=== PATIENT | male | born 1940 | race African-American/Black ===

== ENCOUNTER 2018-08-28 19:51 | Inpatient (IN) | payer OTHER, MEDICAID ==
[~2018-08-28] VITALS: Ht 167.6 cm; Wt 61.4 kg
[2018-08-28 19:43] VITALS: BP 155/89
[~2018-08-28 19:51] MED LIST: ADVAIR 100-501 EACH INH; ALBUTEROL SULF8.5 GM INH; ALBUTEROL2.5 MG/3 M HHN; ALBUTEROL2.5 MG/3 M INH; PREDNISONE20 MG ORAL
[2018-08-28] MEDS ORDERED: Morphine Sulfate 4mg/ml Inj (IV/IM USE ONLY) IVP ONE (20:30)
[2018-08-28 21:07] LABS: BASOPHILS % (AUTO) 0.3 % (0.0-2.0); EOSINOPHILS % (AUTO) 0.1 % (0.0-3.0); HEMATOCRIT 44.8 % (42.0-52.0); HEMOGLOBIN 14.6 G/DL (14.2-18.0); LYMPHOCYTES % (AUTO) 5.9 % (20.0-45.0); MEAN CORPUSCULAR VOLUME 91 FL (80-99); MONOCYTES % (AUTO) 6.1 % (1.0-10.0); NEUTROPHILS % (AUTO) 87.5 % (45.0-75.0); PLATELET COUNT 250 K/UL (150-450); RED BLOOD COUNT 4.94 M/UL (4.70-6.10); RED CELL DISTRIBUTION WIDTH 15.4 % (11.6-14.8); WHITE BLOOD COUNT 16.4 K/UL (4.8-10.8)
[2018-08-28 21:11] LABS: ANION GAP 17 mmol/L (5-15); BLOOD UREA NITROGEN 22 mg/dL (7-18); CALCIUM 9.1 MG/DL (8.5-10.1); CARBON DIOXIDE 19 MMOL/L (21-32); CHLORIDE 93 MMOL/L (98-107); CREATININE 1.9 MG/DL (0.55-1.30); POTASSIUM 4.2 MMOL/L (3.5-5.1); SODIUM 129 MMOL/L (136-145)
[2018-08-28 21:12] LABS: INR 0.9 (0.9-1.1)
[2018-08-28 21:23] LABS: ALANINE AMINOTRANSFERASE 36 U/L (12-78); ALBUMIN 4.1 G/DL (3.4-5.0); ALKALINE PHOSPHATASE 99 U/L (46-116); ASPARTATE AMINO TRANSFERASE 26 U/L (15-37); BILIRUBIN,TOTAL 0.4 MG/DL (0.2-1.0)
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
[2018-08-28 22:25] VITALS: BP 154/96
[2018-08-28] MEDS ORDERED: Nitroglycerin Subl 0.4mg tab SL PRN (22:45)
[2018-08-28] MEDS ORDERED: Morphine Sulfate 2mg/ml Inj IVP PRN (22:45)
[2018-08-28] MEDS ORDERED: Albuterol/Ipratropium 3ml neb HHN PRN (22:45)
[2018-08-28 23:00] VITALS: BP 181/100
[2018-08-29] VITALS (7 sets, daily range): BP systolic 137–189; BP diastolic 74–102
[2018-08-29] MEDS: Metoprolol Succinate XL 25mg tab ORAL SCH ×2 (01:05→08:21)
[2018-08-29] MEDS: Morphine Sulfate 2mg/ml Inj IVP PRN ×2 (02:37→08:23)
[2018-08-29] MEDS ORDERED: Hydromorphone 0.5mg/0.5ml inj IVP ONE (05:15)
[2018-08-29 07:30] LABS: EOSINOPHILS % (AUTO) 0.1 % (0.0-3.0); HEMATOCRIT 38.8 % (42.0-52.0); LYMPHOCYTES % (AUTO) 6.7 % (20.0-45.0); MEAN CORPUSCULAR VOLUME 90 FL (80-99); MONOCYTES % (AUTO) 10.2 % (1.0-10.0); PLATELET COUNT 215 K/UL (150-450); RED BLOOD COUNT 4.32 M/UL (4.70-6.10); RED CELL DISTRIBUTION WIDTH 14.9 % (11.6-14.8); WHITE BLOOD COUNT 10.6 K/UL (4.8-10.8)
[2018-08-29 07:34] LABS: ANION GAP 10 mmol/L (5-15); BLOOD UREA NITROGEN 25 mg/dL (7-18); CALCIUM 8.6 MG/DL (8.5-10.1); CARBON DIOXIDE 23 MMOL/L (21-32); CHLORIDE 97 MMOL/L (98-107); CREATININE 1.7 MG/DL (0.55-1.30); POTASSIUM 5.4 MMOL/L (3.5-5.1); SODIUM 130 MMOL/L (136-145)
[2018-08-29] MEDS ORDERED: Advair 100/50 Inhaler - 14 dose INH SCH (09:00)
[2018-08-29] MEDS ORDERED: Enoxaparin 30mg Inj SUBQ SCH (09:00)
--- NOTE | 2018-08-29 10:59 | Diagnostic Imaging Report ---
Indication: Chest pain Technique: One view of the chest Comparison: 05/25/2005 Findings: There is some atelectasis at the left lung base. Lungs and pleural spaces are otherwise clear. The heart size is normal. The aorta is evaluated tortuous and calcified Impression: Left basilar atelectasis. No acute process otherwise
[2018-08-29] MEDS ORDERED: Metoprolol Tartrate 50mg tab ORAL SCH (11:00)
[2018-08-29] MEDS ORDERED: HYDROmorphone 1mg/ml Carpuject IVP PRN (11:00)
--- NOTE | 2018-08-29 11:14 | Diagnostic Imaging Report ---
Indication: Pain, trauma Technique: Noncontrast spiral acquisitions obtained through the pelvis. Multiplanar reconstructions generated. Total dose length product 347.29 mGycm. CTDIvol(s) 11.2 mGy. Dose reduction achieved using automated exposure control Comparison: none Findings: There is a fracture of the right femoral neck. This is superiorly displaced by about one half bone width, posteriorly angulated. No other acute fractures demonstrated. There are degenerative changes of both hips, mild. Heterotopic ossification is seen along the lateral aspect of the sacrum, extending cephalad along the posterior lateral aspect of the iliac bone. There is bilateral L5 spondylolysis, with grade 1-2 L5 on S1 spondylolisthesis and severe endstage secondary degenerative changes. There is degenerative spondylosis elsewhere in the lower lumbar spine as well. There is some soft tissue contusion in the right posterior hip region subcutaneous fat. There may also be some contusion on the left, less severe. The pelvic viscera are unremarkable. Impression: Positive for right femoral neck fracture Evidence of associated soft tissue contusion Bilateral L5 spondylolysis, grade 1-2 L5 on S1 spondylolisthesis. Degenerative spondylosis Unusual heterotopic ossification along the left lateral aspect of the sacrum, may indicate prior remote insult The CT scanner at [facility] is accredited by the [employer] and the scans are performed using protocols designed to limit radiation exposure to as low as reasonably achievable to attain images of sufficient resolution adequate for diagnostic evaluation.
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
--- NOTE | 2018-08-29 14:09 | Cardiology Report ---
APPROVED REPORT EKG Measurement Heart [id number] [id number] Normal sinus rhythm Possible Left atrial enlargement Borderline ECG
[2018-08-29] MEDS ORDERED: Nitroglycerin Subl 0.4mg tab SL PRN (15:15)
[2018-08-29] MEDS: HYDROmorphone 1mg/ml Carpuject IVP PRN ×2 (17:53→21:52)
[2018-08-29] MEDS: Advair 100/50 Inhaler - 14 dose INH SCH (19:44)
[2018-08-29] MEDS: Albuterol/Ipratropium 3ml neb HHN PRN (20:00)
[2018-08-29] MEDS: Metoprolol Tartrate 50mg tab ORAL SCH (20:39)
[2018-08-30] VITALS (7 sets, daily range): BP systolic 122–170; BP diastolic 78–104
[2018-08-30] MEDS: Albuterol/Ipratropium 3ml neb HHN PRN ×5 (00:38→23:20)
[2018-08-30] MEDS: HYDROmorphone 1mg/ml Carpuject IVP PRN ×4 (01:20→20:49)
[2018-08-30] MEDS: Advair 100/50 Inhaler - 14 dose INH SCH ×2 (06:31→18:00)
[2018-08-30 07:31] LABS: BASOPHILS % (AUTO) 0.5 % (0.0-2.0); EOSINOPHILS % (AUTO) 0.5 % (0.0-3.0); HEMATOCRIT 40.1 % (42.0-52.0); HEMOGLOBIN 13.1 G/DL (14.2-18.0); LYMPHOCYTES % (AUTO) 7.9 % (20.0-45.0); MEAN CORPUSCULAR VOLUME 93 FL (80-99); MONOCYTES % (AUTO) 9.7 % (1.0-10.0); NEUTROPHILS % (AUTO) 81.4 % (45.0-75.0); PLATELET COUNT 204 K/UL (150-450); RED BLOOD COUNT 4.31 M/UL (4.70-6.10); RED CELL DISTRIBUTION WIDTH 16.3 % (11.6-14.8); WHITE BLOOD COUNT 11.6 K/UL (4.8-10.8)
[2018-08-30 07:55] LABS: ANION GAP 10 mmol/L (5-15); BLOOD UREA NITROGEN 30 mg/dL (7-18); CALCIUM 9.2 MG/DL (8.5-10.1); CARBON DIOXIDE 25 MMOL/L (21-32); CHLORIDE 100 MMOL/L (98-107); CREATININE 1.8 MG/DL (0.55-1.30); POTASSIUM 4.8 MMOL/L (3.5-5.1); SODIUM 134 MMOL/L (136-145)
[2018-08-30] MEDS: Metoprolol Tartrate 50mg tab ORAL SCH ×2 (08:31→20:49)
[2018-08-30] MEDS: Enoxaparin 30mg Inj SUBQ SCH (08:35)
--- NOTE | 2018-08-30 09:36 | Nephrology Progress Note ---
Assessment/Plan Assessment/Plan A/P 1) Right femoral neck fracture. Pending surgery on 08/31/2018 - arrange SNF afterwards 2) HTN- stable 3) DVT prophylaxsis with lovenox Subjective Date patient seen: Aug 30, 2018 Time patient seen: 09:34 ROS Limited/Unobtainable: No Allergies: Coded Allergies: No Known Allergies (Unverified , 09/14/14) Subjective Patient feeling well. In no distress awaiting surgery Objective Last 24 Hour Vital Signs Date Time Temp Pulse Resp B/P (MAP) Pulse Ox O2 Delivery O2 Flow Rate FiO2 08/30/18 08:51 76 16 100 Nasal Cannula 2.0 28 08/30/18 08:43 79 18 97 Nasal Cannula 2.0 28 08/30/18 08:31 89 141/104 08/30/18 08:31 89 141/104 08/30/18 08:11 Nasal Cannula 2.0 08/30/18 08:00 98.6 89 19 141/104 (116) 98 08/30/18 06:30 Nasal Cannula 2.0 28 08/30/18 06:30 95 Nasal Cannula 2.0 28 08/30/18 06:30 Nasal Cannula 2.0 28 08/30/18 06:30 Nasal Cannula 2.0 28 08/30/18 05:40 97.6 08/30/18 04:00 97.6 64 22 126/79 (95) 93 08/30/18 00:46 70 18 100 Nasal Cannula 2.0 28 08/30/18 00:38 67 18 95 Nasal Cannula 2.0 28 08/30/18 00:17 97.7 72 22 140/91 (107) 95 08/29/18 21:00 Nasal Cannula 2.0 08/29/18 20:39 76 135/87 08/29/18 20:11 74 18 99 Nasal Cannula 2.0 28 08/29/18 20:03 73 18 97 Nasal Cannula 2.0 28 08/29/18 20:00 97.8 69 22 137/89 (105) 97 08/29/18 19:47 Nasal Cannula 2.0 28 08/29/18 19:47 96 Nasal Cannula 2.0 28 08/29/18 19:46 Nasal Cannula 2.0 28 08/29/18 19:46 Nasal Cannula 2.0 28 08/29/18 16:06 155/102 08/29/18 15:50 99.0 76 18 155/102 (119) 96 08/29/18 12:38 77 149/74 08/29/18 12:00 97.8 77 18 149/74 (99) 96 08/29/18 11:51 80 08/29/18 10:05 Nasal Cannula 2.0 28 08/29/18 10:03 80 18 94 Nasal Cannula 2.0 28 08/29/18 10:01 80 18 94 Nasal Cannula 2.0 28 Intake and Output 08/29/18 08/30/18 19:00 07:00 Intake Total 120 ml 120 ml Output Total 600 ml 300 ml Balance -480 ml -180 ml Intake Oral 120 ml 120 ml Output Urine Total 600 ml 300 ml # Voids 1 2 Laboratory Tests 08/29/18 10:35: Potassium Level 4.6 08/30/18 06:58: Potassium Level 4.8, White Blood Count 11.6H, Red Blood Count 4.31L, Hemoglobin 13.1L, Hematocrit 40.1L, Mean Corpuscular Volume 93, Mean Corpuscular Hemoglobin 30.4, Mean Corpuscular Hemoglobin Concent 32.6, Red Cell Distribution Width 16.3H, Platelet Count 204, Mean Platelet Volume 5.5L, Neutrophils (%) (Auto) 81.4H, Lymphocytes (%) (Auto) 7.9L, Monocytes (%) (Auto) 9.7, Eosinophils (%) (Auto) 0.5, Basophils (%) (Auto) 0.5, Sodium Level 134L, Chloride Level 100, Carbon Dioxide Level 25, Anion Gap 10, Blood Urea Nitrogen 30H, Creatinine 1.8H, Estimat Glomerular Filtration Rate , Glucose Level 115H, Calcium Level 9.2 Height (Feet): 5 Height (Inches): 8.00 Weight (Pounds): 147 General Appearance: no apparent distress, alert EENT: normal ENT inspection Neck: normal alignment, supple Cardiovascular: normal rate, regular rhythm Respiratory/Chest: lungs clear, normal breath sounds Abdomen: non tender, soft Edema: no edema noted Arm (L), no edema noted Arm (R), no edema noted Leg (L), no edema noted Leg (R), no edema noted Pedal (L), no edema noted Pedal (R), no edema noted Generalized De MelanieKelton schroeder MD Aug 30, 2018 09:36
--- NOTE | 2018-08-30 21:00 | Progress Note ---
DATE: 08/29/2018 SUBJECTIVE: Atrial fibrillation. The patient is still in the telemetry. Medically his blood pressure is somewhat elevated. Otherwise, no issues overnight. PHYSICAL EXAMINATION: GENERAL: The patient is alert and oriented. He is resting comfortably on exam bed. EXTREMITIES: He has pain with extension of his right leg. Posterior calf is soft. ASSESSMENT: Right displaced femoral neck fracture. DISCUSSION: At this point, we were waiting to optimize his medical issues in anticipation of proceeding with surgery. Risks, limitations, expectations, and complications of procedure were discussed in detail. Again, we will try to optimize. Hopefully, he is medically cleared for either Wednesday or Wednesday for surgery. Cr Maharaj M.D. DR: NANNETTE JOB#: [id number] CC:
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
--- NOTE | 2018-08-30 21:45 | Progress Note ---
DATE: 08/30/2018 SUBJECTIVE: The patient is now transferred from the telemetry to the regular floor. He is medically optimized in anticipation of surgery during the plan to do a total hip arthroplasty. We are going to schedule it tomorrow when the OR staff is available. He is resting comfortably on the exam bed. No other issues. PHYSICAL EXAMINATION: GENERAL: The patient is alert and oriented. He is resting comfortably on bed. EXTREMITIES: Right leg is shortened and internally rotated. Posterior calf is soft. ASSESSMENT: Right displaced femoral neck fracture with underlying arthritis. DISCUSSION: At this point, I am going to proceed with right total hip arthroplasty. Risks, limitations, expectations, and complications of procedure were discussed in detail. All questions were addressed. The patient will be made NPO after midnight in anticipation of surgery tomorrow. Cr Maharaj M.D. DR: MO JOB#: [id number] CC:
[2018-08-31] VITALS (11 sets, daily range): BP systolic 113–142; BP diastolic 64–95
[2018-08-31] MEDS: HYDROmorphone 1mg/ml Carpuject IVP PRN (05:18)
[2018-08-31 07:25] LABS: BASOPHILS % (AUTO) 0.5 % (0.0-2.0); EOSINOPHILS % (AUTO) 0.6 % (0.0-3.0); HEMATOCRIT 38.9 % (42.0-52.0); HEMOGLOBIN 12.9 G/DL (14.2-18.0); LYMPHOCYTES % (AUTO) 9.5 % (20.0-45.0); MEAN CORPUSCULAR VOLUME 93 FL (80-99); MONOCYTES % (AUTO) 10.6 % (1.0-10.0); NEUTROPHILS % (AUTO) 78.8 % (45.0-75.0); PLATELET COUNT 182 K/UL (150-450); WHITE BLOOD COUNT 9.2 K/UL (4.8-10.8)
[2018-08-31 07:47] LABS: ANION GAP 11 mmol/L (5-15); BLOOD UREA NITROGEN 32 mg/dL (7-18); CALCIUM 9.3 MG/DL (8.5-10.1); CARBON DIOXIDE 23 MMOL/L (21-32); CHLORIDE 102 MMOL/L (98-107); CREATININE 1.5 MG/DL (0.55-1.30); POTASSIUM 4.4 MMOL/L (3.5-5.1); SODIUM 136 MMOL/L (136-145)
[2018-08-31] MEDS: Metoprolol Tartrate 50mg tab ORAL SCH ×2 (08:50→20:39)
[2018-08-31] MEDS: Albuterol/Ipratropium 3ml neb HHN PRN ×2 (08:51→22:44)
[2018-08-31] MEDS: Enoxaparin 30mg Inj SUBQ SCH (08:58)
[2018-08-31] MEDS: Advair 100/50 Inhaler - 14 dose INH SCH (09:00)
--- NOTE | 2018-08-31 09:33 | Nephrology Progress Note ---
Assessment/Plan Assessment/Plan A/P 1) Right femoral neck fracture. Surgery planned for today - arrange SNF afterwards 2) HTN- stable 3) DVT prophylaxsis with lovenox 4) Hypokalemia- replaced today Subjective Date patient seen: Aug 31, 2018 Time patient seen: 09:31 ROS Limited/Unobtainable: No Allergies: Coded Allergies: No Known Allergies (Unverified , 09/14/14) Subjective Patient feeling well. Surgery planned for today Objective Last 24 Hour Vital Signs Date Time Temp Pulse Resp B/P (MAP) Pulse Ox O2 Delivery O2 Flow Rate FiO2 08/31/18 09:12 Nasal Cannula 08/31/18 09:10 Nasal Cannula 2.0 28 08/31/18 09:08 78 20 100 Nasal Cannula 2.0 28 08/31/18 08:51 77 20 99 Nasal Cannula 2.0 28 08/31/18 08:50 89 141/89 08/31/18 08:50 89 141/89 08/31/18 07:48 96 Nasal Cannula 2.0 28 08/31/18 07:48 Nasal Cannula 2.0 28 08/31/18 05:48 98.2 08/31/18 04:00 98.2 73 21 142/85 (104) 99 08/31/18 00:00 97.9 80 22 140/95 (110) 99 08/30/18 23:27 83 20 99 Nasal Cannula 2.0 28 08/30/18 23:17 73 20 97 Nasal Cannula 2.0 28 08/30/18 21:00 Nasal Cannula 2.0 08/30/18 20:49 80 142/83 08/30/18 20:32 Nasal Cannula 2.0 28 08/30/18 20:32 97 Nasal Cannula 2.0 28 08/30/18 20:32 Nasal Cannula 2.0 28 08/30/18 20:31 Nasal Cannula 2.0 28 08/30/18 20:00 97.5 80 22 142/83 (102) 97 08/30/18 17:10 76 20 100 Nasal Cannula 2.0 28 08/30/18 17:00 73 16 97 Nasal Cannula 2.0 28 08/30/18 16:00 98.2 83 19 141/85 (103) 99 08/30/18 13:22 98.1 89 18 122/78 (93) 100 08/30/18 12:53 82 18 100 Nasal Cannula 2.0 28 08/30/18 12:48 88 16 95 Nasal Cannula 2.0 28 08/30/18 12:16 170/88 08/30/18 11:58 98.4 75 18 170/88 (115) 98 Intake and Output 08/30/18 08/31/18 19:00 07:00 Intake Total 1250 ml Output Total 750 ml 900 ml Balance 500 ml -900 ml Intake Oral 1250 ml Output Urine Total 750 ml 900 ml Laboratory Tests 08/31/18 06:58: White Blood Count 9.2, Red Blood Count 4.20L, Hemoglobin 12.9L, Hematocrit 38.9L , Mean Corpuscular Volume 93, Mean Corpuscular Hemoglobin 30.8, Mean Corpuscular Hemoglobin Concent 33.3, Red Cell Distribution Width 16.0H, Platelet Count 182, Mean Platelet Volume 5.4L, Neutrophils (%) (Auto) 78.8H, Lymphocytes (%) (Auto) 9.5L, Monocytes (%) (Auto) 10.6H, Eosinophils (%) (Auto) 0.6, Basophils (%) (Auto) 0.5, Sodium Level 136, Potassium Level 4.4, Chloride Level 102, Carbon Dioxide Level 23, Anion Gap 11, Blood Urea Nitrogen 32H, Creatinine 1.5H, Estimat Glomerular Filtration Rate , Glucose Level 137H, Calcium Level 9.3 Height (Feet): 5 Height (Inches): 6.00 Weight (Pounds): 135 General Appearance: no apparent distress, alert EENT: normal ENT inspection Neck: normal alignment, supple Cardiovascular: normal rate, regular rhythm Respiratory/Chest: lungs clear, normal breath sounds Abdomen: non tender, soft Edema: no edema noted Arm (L), no edema noted Arm (R), no edema noted Leg (L), no edema noted Leg (R), no edema noted Pedal (L), no edema noted Pedal (R), no edema noted Generalized Kelton Sepulveda MD Aug 31, 2018 09:33
[2018-08-31] MEDS ORDERED: Albuterol 90mcg Inhaler 8gm INH PRN (10:30)
[2018-08-31] MEDS ORDERED: LR 1000ml 1,000 ML IVLG SCH (16:39)
--- NOTE | 2018-08-31 16:39 | Anethesia Preoperative Eval ---
Anesthesia Pre-op PMH/ROS General Date of Evaluation: Aug 31, 2018 Time of Evaluation: 17:09 Anesthesiologist: Liz ASA Score: ASA 3 Mallampati Score Class I : Soft palate, uvula, fauces, pillars visible Class II: Soft palate, uvula, fauces visible Class III: Soft palate, base of uvula visible Class IV: Only hard plate visible Mallampati Classification: Class III Surgeon: Nicko Anesthesia History: none Family History: no anesthesia problems Allergies: Coded Allergies: No Known Allergies (Unverified , 09/14/14) Medications: see eMAR Patient NPO?: Yes NPO Date: Aug 31, 2018 NPO Time: 0000 Past Medical History Cardiovascular: Reports: HTN, other - HL Pulmonary: Reports: asthma, COPD Hematology/Immune: Reports: anemia Anesthesia Pre-op Phys. Exam Physician Exam Last Vital Signs Date Time Temp Pulse Resp B/P (MAP) Pulse Ox O2 Delivery O2 Flow Rate FiO2 08/31/18 12:00 97.9 87 20 136/86 (103) 99 08/31/18 09:12 Nasal Cannula 08/31/18 09:10 2.0 28 Constitutional: NAD Neurologic: CN 2-12 intact Cardiovascular: RRR Respiratory: CTA Gastrointestinal: S/NT/ND Airway Exam Mallampati Score: Class III MO: limited ROM: limited Teeth: missing, intact Anesthesia Pre-op A/P Labs Hematology Test 08/31/18 06:58 White Blood Count 9.2 K/UL (4.8-10.8) Red Blood Count 4.20 M/UL (4.70-6.10) L Hemoglobin 12.9 G/DL (14.2-18.0) L Hematocrit 38.9 % (42.0-52.0) L Mean Corpuscular Volume 93 FL (80-99) Mean Corpuscular Hemoglobin 30.8 PG (27.0-31.0) Mean Corpuscular Hemoglobin Concent 33.3 G/DL (32.0-36.0) Red Cell Distribution Width 16.0 % (11.6-14.8) H Platelet Count 182 K/UL (150-450) Mean Platelet Volume 5.4 FL (6.5-10.1) L Neutrophils (%) (Auto) 78.8 % (45.0-75.0) H Lymphocytes (%) (Auto) 9.5 % (20.0-45.0) L Monocytes (%) (Auto) 10.6 % (1.0-10.0) H Eosinophils (%) (Auto) 0.6 % (0.0-3.0) Basophils (%) (Auto) 0.5 % (0.0-2.0) Chemistry Test 08/31/18 06:58 Sodium Level 136 MMOL/L (136-145) Potassium Level 4.4 MMOL/L (3.5-5.1) Chloride Level 102 MMOL/L (98-107) Carbon Dioxide Level 23 MMOL/L (21-32) Anion Gap 11 mmol/L (5-15) Blood Urea Nitrogen 32 mg/dL (7-18) H Creatinine 1.5 MG/DL (0.55-1.30) H Estimat Glomerular Filtration Rate mL/min (>60) Glucose Level 137 MG/DL (74-106) H Calcium Level 9.3 MG/DL (8.5-10.1) Risk Assessment & Plan Assessment: ASA 3 Status Change Before Surgery: No Pre-Antibiotics Dru Gram Ancef IV Given Within 1 Hr of Incision: Yes Time Given: 17:28 Med Hill MD Aug 31, 2018 16:39
--- NOTE | 2018-08-31 16:43 | Immediate Post-Op Evaluation ---
Immediate Post-Op Evalulation Immediate Post-Op Evalulation Procedure: R Total Hip Arthroplasty Date of Evaluation: Aug 31, 2018 Time of Evaluation: 19:18 IV Fluids: 700 LR Blood Products: 0 Estimated Blood Loss: 75 Urinary Output: 50 Blood Pressure Systolic: 114 Blood Pressure Diastolic: 69 Pulse Rate: 69 Respiratory Rate: 16 O2 Sat by Pulse Oximetry: 100 Temperature (Fahrenheit): 97.3 Pain Score (1-10): 0 Nausea: No Vomiting: No Complications 0 Patient Status: awake, reacts, patent, none Hydration Status: adequate Dru Gram Ancef IV Given Within 1 Hr of Incision: Yes Time Given: 17:28 Med Hill MD Aug 31, 2018 16:43
[2018-08-31] MEDS ORDERED: Midazolam 2mg/2ml Inj IVP PRN (16:45)
[2018-08-31] MEDS ORDERED: LORazepam Inj 2mg/ml 1ml IV PRN (16:45)
[2018-08-31] MEDS ORDERED: Meperidine 50mg/ml Inj(FOR RIGORS ONLY) IVP PRN (16:45)
[2018-08-31] MEDS ORDERED: HYDROcodone/Acetamin 7.5/325 tab ORAL PRN ×2 (16:45→17:15)
[2018-08-31] MEDS ORDERED: Metoclopramide 10mg/2ml Inj IVP PRN (16:45)
[2018-08-31] MEDS ORDERED: Hydromorphone 0.5mg/0.5ml inj IVP PRN (16:45)
[2018-08-31] MEDS ORDERED: fentaNYL 100 mcg/2 mL IV PRN (16:45)
[2018-08-31] MEDS ORDERED: DiphenhydrAMINE 50mg/ml Inj IVP PRN (16:45)
[2018-08-31] MEDS ORDERED: Atropine Sulfate 0.4mg/ml inj IVP PRN (16:45)
[2018-08-31] MEDS ORDERED: oxyCODONE HCL/Acetaminophen 5/325mg ORAL PRN (16:45)
[2018-08-31] MEDS ORDERED: Norco 5mg/325mg tab ORAL PRN (16:45)
[2018-08-31] MEDS ORDERED: Sterile Water Irrig 1000ml IRRIG ONE (17:00)
[2018-08-31] MEDS ORDERED: NS Irrig 1000ml ONE (17:00)
[2018-08-31] MEDS ORDERED: LR 1000ml ONE (17:00)
[2018-08-31] MEDS ORDERED: D5 1/2NS w/KCl 20mEq 1,000 ML IV SCH (17:02)
--- NOTE | 2018-08-31 17:03 | Pre-Procedure Note/Attestation ---
Pre-Procedure Note/Attestation Complete Prior to Procedure Planned Procedure: right Procedure Narrative: marcia Indications for Procedure Pre-Operative Diagnosis: right hip femoral neck fracture Attestation I attest that I discussed the nature of the procedure; its benefits; risks and complications; and alternatives (and the risks and benefits of such alternatives ), prior to the procedure, with the patient (or the patient's legal sales representative supervisor). I attest that, if there was a reasonable possibility of needing a blood transfusion, the patient (or the patient's legal sales representative supervisor) was given the [facility] standardized written summary, pursuant to the Logan Candis Blood Safety Act ([place] Health and Safety Code # 1645, as amended). I attest that I re-evaluated the patient just prior to the surgery and that there has been no change in the patient's H&P, except as documented below: Cr Maharaj MD Aug 31, 2018 17:03
--- NOTE | 2018-08-31 17:03 | Operative Note - PDOC ---
Operative Note Operative Note Pre-op Diagnosis: right hip femoral neck fracture Procedure: see op report Post-op Diagnosis: same as pre-op plus Operative Findings: consistent w/pre-op dx studies Additional Surgeons: jim mistry Specimen: none Complications: none Condition: stable Estimated Blood Loss: none Implant(s) used?: Yes Cr Maharaj MD Aug 31, 2018 17:03
[2018-08-31] MEDS ORDERED: Sodium Chloride 10ml vial INJ ONE (17:04)
[2018-08-31] MEDS ORDERED: EPINEPHrine 1mg/1ml Amp ONE (17:04)
[2018-08-31] MEDS ORDERED: Midazolam 2mg/2ml Inj ONE (17:04)
[2018-08-31] MEDS ORDERED: Bacitracin 50000 Units Vial ONE (17:05)
[2018-08-31] MEDS ORDERED: NeoSporin Gu Irrig 1ml Amp IRRIG ONE (17:05)
[2018-08-31] MEDS ORDERED: Milk of Magnesia 30ml Ud ORAL PRN (17:15)
[2018-08-31] MEDS ORDERED: Morphine Sulfate 4mg/ml Inj (IV/IM USE ONLY) IVP PRN ×2 (17:15)
[2018-08-31] MEDS ORDERED: oxyCODONE 5mg IR tab ORAL PRN (17:15)
[2018-08-31] MEDS ORDERED: Propofol 200mg/20ml IV ONE (17:40)
[2018-08-31] MEDS ORDERED: Lidocaine 1% Plain 30 ml INJ ONE (17:40)
[2018-08-31] MEDS ORDERED: ePHEDrine 50mg/ml Inj ONE (18:04)
[2018-08-31] MEDS: Docusate 100mg cap ORAL SCH (19:00)
--- NOTE | 2018-08-31 19:30 | Operative Note - Dictated ---
DATE OF OPERATION: 08/31/2018 ADDENDUM MSW SURGEON: Khushi Thapa M.D. Cr Maharaj M.D. DR: Jordan JOB#: [id number] CC:
--- NOTE | 2018-08-31 20:15 | Operative Note - Dictated ---
PREOPERATIVE DIAGNOSES: 1. Right femoral neck fracture, displaced. 2. Right hip arthritis. POSTOPERATIVE DIAGNOSES: 1. Right femoral neck fracture, displaced. 2. Right hip arthritis. PROCEDURE: Right total hip arthroplasty. SURGEON: Cr Maharaj M.D. Service Now Developer Surgeon: Galina Jeffrey ANESTHESIA: Spinal. INDICATION FOR PROCEDURE: The patient is a pleasant 78-year-old gentleman, who sustained a mechanical fall. He was diagnosed with displaced femoral neck fracture using proper fixation. Risks, limitations, expectations, and complications of procedure were discussed in detail. All questions addressed. Given his active lifestyle, it was indicated to undergo right total hip arthroplasty hemiarthroplasty. Risks, limitations, expectations, and complications of procedure were discussed in detail including instability, leg length discrepancy, need for future surgery, etc. All questions addressed. DESCRIPTION OF PROCEDURE: After informed consent was obtained, the patient was brought to the operating room. The patient was placed under spinal anesthesia. The patient has a Mendes catheter placed. The patient was then carefully placed in the beach-chair position. Right hip was prepped and draped in a sterile manner. A posterolateral skin incision was then made. Fascia marla was incised. Piriformis was tagged and capsule was T'd in the C2 neck cut below the femoral fracture was performed. The head was removed measured about 56 mm, measuring up to 54 was performed. A 56 cup was placed along with 2 screws. Neutral liner was placed. Sequential broaching up to size 6 was high offset, 0 head neck combo was selected. Hip was reduced, flexed to 120 degrees, 90 degrees flexion, internal rotation to 60 extension, external rotation was stable. At this point, the trial components were removed. Final implants were impacted into place. The capsule reapproximated two drill holes to the greater trochanter. Fascia marla was approximated with #1 Vicryl suture, 2-0 Vicryl suture, and 3-0 Monocryl suture. Steri-Strips and a sterile dressing were applied. The patient was awoken and taken to recovery room with stable vital signs. ESTIMATED BLOOD LOSS: 50 mL. COMPLICATIONS: None. SPECIMENS: None. IMPLANTS: Include a 56 acetabular component, size 6 high offset accolade stem with 0 head neck combo. Cr Maharaj M.D. DR: NANNETTE JOB#: [id number] CC: DANISH
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
[2018-09-01] VITALS: BP 114/79
[2018-09-01] MEDS: ceFAZolin 2gm/50ml Premix 50 ML IV SCH ×2 (00:09→10:10)
[2018-09-01] MEDS: HYDROmorphone 1mg/ml Carpuject IVP PRN ×2 (00:19→03:51)
[2018-09-01] MEDS ORDERED: ceFAZolin sod 2 GM in D5W 110 ML IV SCH (01:00)
[2018-09-01 04:00] VITALS: BP 139/72
[2018-09-01] MEDS: Albuterol/Ipratropium 3ml neb HHN PRN ×2 (05:24→16:44)
[2018-09-01 07:09] LABS: BASOPHILS % (AUTO) 0.4 % (0.0-2.0); EOSINOPHILS % (AUTO) 0.3 % (0.0-3.0); HEMATOCRIT 36.2 % (42.0-52.0); MEAN CORPUSCULAR VOLUME 92 FL (80-99); MONOCYTES % (AUTO) 12.4 % (1.0-10.0); PLATELET COUNT 183 K/UL (150-450); RED BLOOD COUNT 3.92 M/UL (4.70-6.10); RED CELL DISTRIBUTION WIDTH 15.6 % (11.6-14.8); WHITE BLOOD COUNT 8.5 K/UL (4.8-10.8)
[2018-09-01 07:23] LABS: ANION GAP 13 mmol/L (5-15); BLOOD UREA NITROGEN 35 mg/dL (7-18); CALCIUM 8.9 MG/DL (8.5-10.1); CARBON DIOXIDE 23 MMOL/L (21-32); CHLORIDE 100 MMOL/L (98-107); CREATININE 1.7 MG/DL (0.55-1.30); POTASSIUM 4.1 MMOL/L (3.5-5.1); SODIUM 135 MMOL/L (136-145)
[2018-09-01 08:00] VITALS: BP 133/81
--- NOTE | 2018-09-01 09:19 | Nephrology Progress Note ---
Assessment/Plan Assessment/Plan A/P 1) Right femoral neck fracture. - Right femoral neck fracture, displaced. - s/p Right total hip arthroplasty. - DC today to SNF 2) HTN- stable 3) DVT prophylaxsis with lovenox 4) Hypokalemia- replace prn 5) CKD 3B- Cr stable. Will need renal oupt follow up with PCP as well Subjective Date patient seen: Sep 01, 2018 Time patient seen: 09:16 ROS Limited/Unobtainable: No Allergies: Coded Allergies: No Known Allergies (Unverified , 09/14/14) Subjective Patient feeling well post hip surgery Objective Last 24 Hour Vital Signs Date Time Temp Pulse Resp B/P (MAP) Pulse Ox O2 Delivery O2 Flow Rate FiO2 09/01/18 05:39 85 18 100 Nasal Cannula 2.0 28 09/01/18 05:26 104 16 99 Nasal Cannula 2.0 28 09/01/18 04:00 97.8 96 20 139/72 (94) 99 09/01/18 00:00 97.9 79 19 114/79 (91) 97 08/31/18 23:04 Nasal Cannula 2.0 28 08/31/18 22:56 98 18 100 Nasal Cannula 2.0 28 08/31/18 22:48 98 16 99 Nasal Cannula 2.0 28 08/31/18 22:44 65 16 99 Nasal Cannula 2.0 08/31/18 21:00 Nasal Cannula 2.0 08/31/18 20:50 100 Nasal Cannula 2.0 28 08/31/18 20:49 Nasal Cannula 2.0 08/31/18 20:39 84 111/69 08/31/18 20:00 97.4 92 18 114/73 100 Nasal Cannula 2.0 08/31/18 19:45 87 17 116/74 100 Nasal Cannula 2.0 08/31/18 19:30 91 17 113/64 100 Simple Mask 6.0 08/31/18 19:17 89 18 115/68 100 Simple Mask 6.0 08/31/18 19:12 88 17 118/70 100 Simple Mask 6.0 08/31/18 19:08 69 16 100 08/31/18 19:07 97.3 69 16 114/69 100 Simple Mask 6.0 08/31/18 16:00 98.0 84 20 129/85 (100) 98 08/31/18 12:00 97.9 87 20 136/86 (103) 99 Intake and Output 08/31/18 09/01/18 19:00 07:00 Intake Total 1800 ml Output Total 450 ml Balance 1350 ml Intake Oral 500 ml IV Total 1300 ml Output Urine Total 450 ml Laboratory Tests 09/01/18 05:25: White Blood Count 8.5, Red Blood Count 3.92L, Hemoglobin 12.0L, Hematocrit 36.2L , Mean Corpuscular Volume 92, Mean Corpuscular Hemoglobin 30.7, Mean Corpuscular Hemoglobin Concent 33.2, Red Cell Distribution Width 15.6H, Platelet Count 183, Mean Platelet Volume 6.3L, Neutrophils (%) (Auto) 79.0H, Lymphocytes (%) (Auto) 8.0L, Monocytes (%) (Auto) 12.4H, Eosinophils (%) (Auto) 0.3, Basophils (%) (Auto) 0.4, Sodium Level 135L, Potassium Level 4.1, Chloride Level 100, Carbon Dioxide Level 23, Anion Gap 13, Blood Urea Nitrogen 35H, Creatinine 1.7H, Estimat Glomerular Filtration Rate , Glucose Level 145H, Calcium Level 8.9 Height (Feet): 5 Height (Inches): 6.00 Weight (Pounds): 135 General Appearance: no apparent distress, alert EENT: normal ENT inspection Neck: normal alignment, supple Cardiovascular: normal rate, regular rhythm Respiratory/Chest: lungs clear, normal breath sounds Abdomen: non tender, soft Edema: no edema noted Arm (L), no edema noted Arm (R), no edema noted Leg (L), no edema noted Leg (R), no edema noted Pedal (L), no edema noted Pedal (R), no edema noted Generalized Kelton Sepulveda MD Sep 01, 2018 09:18
[2018-09-01] MEDS: Metoprolol Tartrate 50mg tab ORAL SCH ×2 (10:11→20:43)
[2018-09-01] MEDS: Docusate 100mg cap ORAL SCH ×3 (10:11→17:32)
[2018-09-01] MEDS: Enoxaparin 30mg Inj SUBQ SCH (10:12)
[2018-09-01] MEDS: Norco 5mg/325mg tab ORAL PRN (10:58)
--- NOTE | 2018-09-01 11:23 | Pulmonology Progress Note ---
Assessment/Plan Assessment/Plan 1. Chronic obstructive pulmonary disease, stable. 2. Asthma, stable. 3. Status post hip fracture. 4. Hypertension. DISCUSSION: The patient is POD #1. I will follow as internet designer. Respiratory status is stable. Kalyan Garcia M.D. Subjective Interval Events: Doing well POD #1 Constitutional: Reports: no symptoms HEENT: Repors: no symptoms Respiratory: Reports: no symptoms Cardiovascular: Reports: no symptoms Gastrointestinal/Abdominal: Reports: no symptoms Genitourinary: Reports: no symptoms Allergies: Coded Allergies: No Known Allergies (Unverified , 09/14/14) Objective Last 24 Hour Vital Signs Date Time Temp Pulse Resp B/P (MAP) Pulse Ox O2 Delivery O2 Flow Rate FiO2 09/01/18 10:11 99 133/81 09/01/18 10:11 99 133/81 09/01/18 08:00 97.7 99 20 133/81 (98) 93 09/01/18 05:39 85 18 100 Nasal Cannula 2.0 09/01/18 05:26 104 16 99 Nasal Cannula 2.0 28 09/01/18 04:00 97.8 96 20 139/72 (94) 99 09/01/18 00:00 97.9 79 19 114/79 (91) 97 08/31/18 23:04 Nasal Cannula 2.0 28 08/31/18 22:56 98 18 100 Nasal Cannula 2.0 08/31/18 22:48 98 16 99 Nasal Cannula 2.0 08/31/18 22:44 65 16 99 Nasal Cannula 2.0 08/31/18 21:00 Nasal Cannula 2.0 08/31/18 20:50 100 Nasal Cannula 2.0 08/31/18 20:49 Nasal Cannula 2.0 08/31/18 20:39 84 111/69 08/31/18 20:00 97.4 92 18 114/73 100 Nasal Cannula 2.0 08/31/18 19:45 87 17 116/74 100 Nasal Cannula 2.0 08/31/18 19:30 91 17 113/64 100 Simple Mask 6.0 08/31/18 19:17 89 18 115/68 100 Simple Mask 6.0 08/31/18 19:12 88 17 118/70 100 Simple Mask 6.0 08/31/18 19:08 69 16 100 08/31/18 19:07 97.3 69 16 114/69 100 Simple Mask 6.0 08/31/18 16:00 98.0 84 20 129/85 (100) 98 08/31/18 12:00 97.9 87 20 136/86 (103) 99 Intake and Output 08/31/18 09/01/18 19:00 07:00 Intake Total 1800 ml Output Total 450 ml Balance 1350 ml Intake Oral 500 ml IV Total 1300 ml Output Urine Total 450 ml General Appearance: no acute distress HEENT: normocephalic Respiratory/Chest: chest wall non-tender, lungs clear Cardiovascular: normal peripheral pulses Abdomen: normal bowel sounds Laboratory Tests 09/01/18 05:25: White Blood Count 8.5, Red Blood Count 3.92L, Hemoglobin 12.0L, Hematocrit 36.2L , Mean Corpuscular Volume 92, Mean Corpuscular Hemoglobin 30.7, Mean Corpuscular Hemoglobin Concent 33.2, Red Cell Distribution Width 15.6H, Platelet Count 183, Mean Platelet Volume 6.3L, Neutrophils (%) (Auto) 79.0H, Lymphocytes (%) (Auto) 8.0L, Monocytes (%) (Auto) 12.4H, Eosinophils (%) (Auto) 0.3, Basophils (%) (Auto) 0.4, Sodium Level 135L, Potassium Level 4.1, Chloride Level 100, Carbon Dioxide Level 23, Anion Gap 13, Blood Urea Nitrogen 35H, Creatinine 1.7H, Estimat Glomerular Filtration Rate , Glucose Level 145H, Calcium Level 8.9 Current Medications Medications (Trade) Dose Ordered Sig/Laura Route PRN Reason Start Time Stop Time Status Last Admin Dose Admin Acetaminophen/ Hydrocodone Bitart ([place] 5/325) 2 tab Q6H PRN ORAL Severe Pain (Pain Scale 7-10) 08/31/18 17:15 09/07/18 17:14 09/01/18 10:58 Acetaminophen/ Hydrocodone Bitart ([place] 7.5/325) 1 tab Q4H PRN ORAL Moderate Pain (Pain Scale 4-6) 08/31/18 17:15 1/2/19 17:14 Albuterol Sulfate (Proventil MDI) 2 puff Q4H PRN INH Shortness of Breath 08/31/18 10:30 09/30/18 10:29 Albuterol/ Ipratropium (Albuterol/ Ipratropium) 3 ml Q4H PRN HHN Shortness of Breath 08/29/18 18:45 09/02/18 22:44 09/01/18 05:24 Amlodipine Besylate (Norvasc) 10 mg DAILY ORAL 08/30/18 09:00 09/28/18 00:29 09/01/18 10:11 Clonidine HCl (Catapres Tab) 0.1 mg Q4H PRN ORAL For SBP >150 08/29/18 15:30 09/28/18 03:29 08/30/18 12:16 Dextrose (Dextrose 50%) 25 ml Q30M PRN IV Hypoglycemia 08/29/18 15:15 09/27/18 22:44 Dextrose (Dextrose 50%) 50 ml Q30M PRN IV Hypoglycemia 08/29/18 15:15 09/27/18 22:44 Docusate Sodium (Colace) 100 mg THREE TIMES A DAY ORAL 08/31/18 18:00 09/30/18 17:59 09/01/18 10:11 Enoxaparin Sodium (Lovenox) 30 mg DAILY SUBQ 08/30/18 09:00 09/28/18 08:59 09/01/18 10:12 Famotidine (Pepcid) 40 mg DAILY ORAL 08/30/18 09:00 09/28/18 08:59 09/01/18 10:10 Magnesium Hydroxide (Mom) 30 ml DAILYPRN PRN ORAL Constipation 08/31/18 17:15 09/30/18 17:14 Metoprolol Tartrate (Lopressor) 50 mg Q12HR ORAL 08/29/18 21:00 09/28/18 10:59 09/01/18 10:11 Morphine Sulfate (Morphine Sulfate) 1 mg Q3H PRN IVP Pain scale 1-3 08/31/18 17:15 09/07/18 17:14 Morphine Sulfate (Morphine Sulfate) 2 mg Q3H PRN IVP Moderate Pain (Pain Scale 4-6) 08/31/18 17:15 09/07/18 17:14 Nitroglycerin (Ntg) 0.4 mg Q5M PRN SL Prn Chest Pain 08/29/18 15:15 09/27/18 22:44 Ondansetron HCl (Zofran) 4 mg Q6H PRN IVP Nausea & Vomiting 08/31/18 17:15 09/30/18 17:14 Oxycodone HCl (Roxicodone) 5 mg Q4H PRN ORAL Breakthrough Pain 08/31/18 17:15 09/07/18 17:14 Temazepam (Restoril) 7.5 mg DAILY PRN ORAL Insomnia 08/31/18 17:15 09/07/18 17:14 08/31/18 21:32 Kalyan Garcia MD Sep 01, 2018 11:22
[2018-09-01 12:00] VITALS: BP 131/78
--- NOTE | 2018-09-01 12:00 | Diagnostic Imaging Report ---
Indication: Pain status post surgery Technique: XRAY Pelvis 1v Comparison: CT of the pelvis 08/28/2018 Findings: There is interval right hip total arthroplasty. No periprosthetic fracture identified. There is somewhat roughened/fragmented contour of portions of the acetabular component. Foci of gas in the subcutaneous tissues in the joint consistent with recent postoperative state. A Mendes catheter is noted. Symphysis pubis is maintained. There are atherosclerotic vascular calcifications. IMPRESSION: Status post recent right total hip arthroplasty. Somewhat roughened/fragmented contour of portions of the acetabular component is noted, of uncertain clinical significance. Correlate clinically. No periprosthetic fracture identified.
--- NOTE | 2018-09-01 12:43 | 48 Hour Post Anesthesia Eval ---
Post Anesthesia Evaluation Procedure: R Total Hip Arthroplasty Date of Evaluation: Sep 01, 2018 Airway: patent Nausea: No Vomiting: No Pain Intensity: 0 Hydration Status: adequate Cardiopulmonary Status: at baseline Mental Status/LOC: patient returned to baseline Post-Anesthesia Complications: 0 Follow-up care needed: N/A - further care as per primary team Samara Bernal MD Sep 01, 2018 12:43
--- NOTE | 2018-09-01 14:30 | Discharge Instructions ---
Discharge Instructions Discharge Instructions Services at Discharge: day care Diet: 2 GM sodium (low sodium) Resume Normal Activity?: Yes Activity: light activity Follow Up Orders Follow PT/OT orders For Congestive Heart Failure Reminder Report to your physician any weight gain of 5 pounds or more in one week. Kelton Sepulveda MD Sep 01, 2018 14:30
[2018-09-01] MEDS ORDERED: Tubing IV Secondary IV ONE (15:20)
[2018-09-01] MEDS ORDERED: NS 275ml ONE (15:20)
[2018-09-01 16:00] VITALS: BP 128/76
[2018-09-01 20:00] VITALS: BP 142/82
[2018-09-02] VITALS: BP 140/78
[2018-09-02] MEDS: Albuterol/Ipratropium 3ml neb HHN PRN (02:05)
[2018-09-02] MEDS: Norco 5mg/325mg tab ORAL PRN (02:13)
[2018-09-02 03:59] VITALS: BP 125/74
[2018-09-02 08:00] VITALS: BP 132/76
--- NOTE | 2018-09-02 08:45 | Pulmonology Progress Note ---
Assessment/Plan Assessment/Plan 1. Chronic obstructive pulmonary disease, stable. 2. Asthma, stable. 3. Status post hip fracture. 4. Hypertension. DISCUSSION: The patient is POD #2. I will follow as religious healer. Respiratory status is stable. Dr Lopez will cover me 09/03/18-09/07/18 Kalyan Garcia M.D. Subjective Interval Events: No new problems Constitutional: Reports: no symptoms HEENT: Repors: no symptoms Respiratory: Reports: no symptoms Cardiovascular: Reports: no symptoms Gastrointestinal/Abdominal: Reports: no symptoms Genitourinary: Reports: no symptoms Allergies: Coded Allergies: No Known Allergies (Unverified , 09/14/14) Objective Last 24 Hour Vital Signs Date Time Temp Pulse Resp B/P (MAP) Pulse Ox O2 Delivery O2 Flow Rate FiO2 09/02/18 08:00 98.2 84 20 132/76 (94) 98 09/02/18 07:50 89 17 Nasal Cannula 2.0 09/02/18 07:50 Nasal Cannula 2.0 09/02/18 07:50 97 Nasal Cannula 2.0 09/02/18 03:59 98.7 82 18 125/74 (91) 98 09/02/18 02:15 97 20 99 Nasal Cannula 2.0 09/02/18 02:06 94 16 98 Nasal Cannula 2.0 09/02/18 00:00 97.8 80 18 140/78 (98) 97 09/01/18 21:45 94 Nasal Cannula 2.0 28 09/01/18 21:45 Nasal Cannula 2.0 28 09/01/18 21:00 Nasal Cannula 2.0 09/01/18 20:43 91 135/85 09/01/18 20:00 97.6 91 18 142/82 (102) 96 09/01/18 16:45 99 16 99 Nasal Cannula 2.0 28 09/01/18 16:00 98.5 96 20 128/76 (93) 97 09/01/18 12:00 97.9 98 20 131/78 (95) 94 09/01/18 11:28 97.7 09/01/18 10:11 99 133/81 09/01/18 10:11 99 133/81 09/01/18 09:00 Nasal Cannula 2.0 Intake and Output 09/01/18 09/02/18 19:00 07:00 Intake Total 910 ml 300 ml Output Total 250 ml Balance 660 ml 300 ml Intake Oral 910 ml Other 300 ml Output Urine Total 250 ml # Voids 1 1 General Appearance: no acute distress HEENT: normocephalic Respiratory/Chest: chest wall non-tender, lungs clear Cardiovascular: normal peripheral pulses, normal rate Abdomen: normal bowel sounds Current Medications Medications (Trade) Dose Ordered Sig/Laura Route PRN Reason Start Time Stop Time Status Last Admin Dose Admin Acetaminophen/ Hydrocodone Bitart ([place] 5/325) 2 tab Q6H PRN ORAL Severe Pain (Pain Scale 7-10) 08/31/18 17:15 09/07/18 17:14 09/02/18 02:13 Acetaminophen/ Hydrocodone Bitart ([place] 7.5/325) 1 tab Q4H PRN ORAL Moderate Pain (Pain Scale 4-6) 08/31/18 17:15 09/07/18 17:14 Albuterol Sulfate (Proventil MDI) 2 puff Q4H PRN INH Shortness of Breath 08/31/18 10:30 09/30/18 10:29 Albuterol/ Ipratropium (Albuterol/ Ipratropium) 3 ml Q4H PRN HHN Shortness of Breath 08/29/18 18:45 09/02/18 22:44 09/02/18 02:05 Amlodipine Besylate (Norvasc) 10 mg DAILY ORAL 08/30/18 09:00 09/28/18 00:29 09/01/18 10:11 Clonidine HCl (Catapres Tab) 0.1 mg Q4H PRN ORAL For SBP >150 08/29/18 15:30 09/28/18 03:29 08/30/18 12:16 Dextrose (Dextrose 50%) 25 ml Q30M PRN IV Hypoglycemia 08/29/18 15:15 09/27/18 22:44 Dextrose (Dextrose 50%) 50 ml Q30M PRN IV Hypoglycemia 08/29/18 15:15 09/27/18 22:44 Docusate Sodium (Colace) 100 mg THREE TIMES A DAY ORAL 08/31/18 18:00 09/30/18 17:59 09/01/18 17:32 Enoxaparin Sodium (Lovenox) 30 mg DAILY SUBQ 08/30/18 09:00 09/28/18 08:59 09/01/18 10:12 Famotidine (Pepcid) 40 mg DAILY ORAL 08/30/18 09:00 09/28/18 08:59 09/01/18 10:10 Magnesium Hydroxide (Mom) 30 ml DAILYPRN PRN ORAL Constipation 08/31/18 17:15 09/30/18 17:14 Metoprolol Tartrate (Lopressor) 50 mg Q12HR ORAL 08/29/18 21:00 09/28/18 10:59 09/01/18 20:43 Morphine Sulfate (Morphine Sulfate) 1 mg Q3H PRN IVP Pain scale 1-3 08/31/18 17:15 09/07/18 17:14 Morphine Sulfate (Morphine Sulfate) 2 mg Q3H PRN IVP Moderate Pain (Pain Scale 4-6) 08/31/18 17:15 09/07/18 17:14 Nitroglycerin (Ntg) 0.4 mg Q5M PRN SL Prn Chest Pain 08/29/18 15:15 09/27/18 22:44 Ondansetron HCl (Zofran) 4 mg Q6H PRN IVP Nausea & Vomiting 08/31/18 17:15 09/30/18 17:14 Oxycodone HCl (Roxicodone) 5 mg Q4H PRN ORAL Breakthrough Pain 08/31/18 17:15 09/07/18 17:14 Temazepam (Restoril) 7.5 mg DAILY PRN ORAL Insomnia 08/31/18 17:15 09/07/18 17:14 09/01/18 20:43 Kalyan Garcia MD Sep 02, 2018 08:45
--- NOTE | 2018-09-02 09:03 | Nephrology Progress Note ---
Assessment/Plan Assessment/Plan A/P 1) Right femoral neck fracture. - s/p Right total hip arthroplasty. - DC today 2) HTN- stable 3) DVT prophylaxsis with lovenox 4) Hypokalemia- replace prn 5) CKD 3B- Cr stable. Renal oupt follow up with PCP as well Subjective Date patient seen: Sep 02, 2018 Time patient seen: 09:01 ROS Limited/Unobtainable: No Allergies: Coded Allergies: No Known Allergies (Unverified , 09/14/14) Subjective Patient feeling well post hip surgery and OK for DC today Objective Last 24 Hour Vital Signs Date Time Temp Pulse Resp B/P (MAP) Pulse Ox O2 Delivery O2 Flow Rate FiO2 09/02/18 08:00 98.2 84 20 132/76 (94) 98 09/02/18 07:50 89 17 Nasal Cannula 2.0 09/02/18 07:50 Nasal Cannula 2.0 28 09/02/18 07:50 97 Nasal Cannula 2.0 09/02/18 03:59 98.7 82 18 125/74 (91) 98 09/02/18 02:15 97 20 99 Nasal Cannula 2.0 28 09/02/18 02:06 94 16 98 Nasal Cannula 2.0 28 09/02/18 00:00 97.8 80 18 140/78 (98) 97 09/01/18 21:45 94 Nasal Cannula 2.0 09/01/18 21:45 Nasal Cannula 2.0 28 09/01/18 21:00 Nasal Cannula 2.0 09/01/18 20:43 91 135/85 09/01/18 20:00 97.6 91 18 142/82 (102) 96 09/01/18 16:45 99 16 99 Nasal Cannula 2.0 28 09/01/18 16:00 98.5 96 20 128/76 (93) 97 09/01/18 12:00 97.9 98 20 131/78 (95) 94 09/01/18 11:28 97.7 09/01/18 10:11 99 133/81 09/01/18 10:11 99 133/81 Intake and Output 09/01/18 09/02/18 19:00 07:00 Intake Total 910 ml 300 ml Output Total 250 ml Balance 660 ml 300 ml Intake Oral 910 ml Other 300 ml Output Urine Total 250 ml # Voids 1 1 Height (Feet): 5 Height (Inches): 6.00 Weight (Pounds): 135 General Appearance: no apparent distress EENT: normal ENT inspection Neck: normal alignment Cardiovascular: normal rate, regular rhythm Respiratory/Chest: lungs clear, normal breath sounds Abdomen: non tender, soft Edema: no edema noted Arm (L), no edema noted Arm (R), no edema noted Leg (L), no edema noted Leg (R), no edema noted Pedal (L), no edema noted Pedal (R), no edema noted Generalized Kelton Sepulveda MD Sep 02, 2018 09:03
[2018-09-02] MEDS: Metoprolol Tartrate 50mg tab ORAL SCH (09:20)
[2018-09-02 09:21] VITALS: BP 132/76
[2018-09-02] MEDS: Enoxaparin 30mg Inj SUBQ SCH (09:21)
[2018-09-02] MEDS: Docusate 100mg cap ORAL SCH (09:22)
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
== END 2018-09-02 10:25 | DRG 470 ==
LOC: EDBD 19:51 → EMR 20:15 → EDBEDREQ 21:32 → 2E 21:59 → EDBEDREQ 22:23 → 2E 08-29 00:24 → 3E 08-29 14:35
PROC: 0SR90JA Replacement of Right Hip Joint with Synthetic Substitute, Uncemented, Open Approach (ICD-10-PCS; principal; 2018-08-31 13:00)
DX: S72.001A Fracture of unspecified part of neck of right femur, initial encounter for closed fracture (principal); E78.5 Hyperlipidemia, unspecified; J44.9 Chronic obstructive pulmonary disease, unspecified; M16.11 Unilateral primary osteoarthritis, right hip; E87.6 Hypokalemia; M43.18 Spondylolisthesis, sacral and sacrococcygeal region; M47.896 Other spondylosis, lumbar region; I12.9 Hypertensive chronic kidney disease with stage 1 through stage 4 chronic kidney disease, or unspecified chronic kidney disease; N18.3 Chronic kidney disease, stage 3 (moderate); V19.3XXA Pedal cyclist (driver) (passenger) injured in unspecified nontraffic accident, initial encounter; Y92.481 Parking lot as the place of occurrence of the external cause
CPT/HCPCS: 36415; 71045; 72170; 72192; 80048; 80053; 82962; 84132; 84443; 84484; 85025; 85610; 85730; 86850; 86900; 86901; 93005; 94003; 94150; 94640; 94664; 94760; 96374; 96375; 99285; J2250; J2405; J7620